=== PATIENT | male | born 1985 | race Caucasian/White ===

== ENCOUNTER 2023-08-19 11:36 | Day surgery (SDC) | payer BC ==
[~2023-08-19 11:36] MED LIST: Lactated Ringers 1,000 ML IV SCH
[2023-08-19] MEDS ORDERED: Lidocaine 2% 5 ML SDV ONE (13:07)
[2023-08-19] MEDS ORDERED: Propofol 200 MG/20 ML SDV ONE (13:07)
[2023-08-19] MEDS ORDERED: Lactated Ringers 1,000 ML IV SCH (13:30)
== END 2023-08-19 14:06 | disposition home or self-care (01) ==
LOC: MW.SDS 11:36
PROVIDERS: ATTEND Surgery
DX: K62.5 Hemorrhage of anus and rectum (principal); Z80.0 Family history of malignant neoplasm of digestive organs; Z98.890 Other specified postprocedural states
CPT/HCPCS: 45378; J2704; J7120; J3490